=== PATIENT | female | born 1975 | race Two or more races ===

== ENCOUNTER 2019-07-10 16:27 | Emergency (ER) | payer SELFPAY ==
[~2019-07-10] VITALS: Ht 162.6 cm; Wt 89.8 kg
[2019-07-10] MEDS ORDERED: HYDROcodone/APAP 5/325MG 1 TAB TABLET PO ONE (16:45)
--- NOTE | 2019-07-10 16:49 | PHYS DOC ---
Adult General Chief Complaint Chief Complaint: ABSCESS HPI HPI Patient is a 43 year old female who presents with an abscess on the right buttock that began 2 days ago. Review of Systems Review of Systems Constitutional: Denies fever or chills [] Eyes: Denies change in visual acuity, redness, or eye pain [] HENT: Denies nasal congestion or sore throat [] Respiratory: Denies cough or shortness of breath [] Cardiovascular: No additional information not addressed in HPI [] GI: Denies abdominal pain, nausea, vomiting, bloody stools or diarrhea [] : Denies dysuria or hematuria [] Musculoskeletal: Denies back pain or joint pain [] Integument: Reports abscess to the right back to Neurologic: Denies headache, focal weakness or sensory changes [] All other systems were reviewed and found to be within normal limits, except as documented in this note. Current Medications Current Medications Current Medications Medications (Trade) Dose Ordered Sig/May Start Time Stop Time Status Last Admin Dose Admin Acetaminophen/ Hydrocodone Bitart (Lortab 5/325) 2 tab 1X ONCE 07/10/19 16:45 07/10/19 16:54 DC 07/10/19 17:00 2 TAB Lidocaine/Sodium Bicarbonate (Buffered Lidocaine 1%) 3 ml STK-MED ONCE 07/10/19 16:55 07/10/19 16:56 DC Allergies Allergies Allergies Coded Allergies Type Severity Reaction Last Updated Verified ampicillin Allergy Intermediate hives 07/10/19 Yes Physical Exam Physical Exam Constitutional: Well developed, well nourished, no acute distress, non-toxic appearance. [] HENT: Normocephalic, atraumatic, bilateral external ears normal, oropharynx moist, no oral exudates, nose normal. [] Eyes: PERRLA, EOMI, conjunctiva normal, no discharge. [] Neck: Normal range of motion, no tenderness, supple, no stridor. [] Cardiovascular:Heart rate regular rhythm, no murmur [] Lungs & Thorax: Bilateral breath sounds clear to auscultation [] Abdomen: Bowel sounds normal, soft, no tenderness, no masses, no pulsatile masses. [] Skin: Warm, dry, right inner buttock with an indurated area approximately 3 x 1 cm, the area is firm tender to touch warm small amount of fluctuance noted as well as erythema Back: No tenderness, no CVA tenderness. [] Extremities: No tenderness, no cyanosis, no clubbing, ROM intact, no edema. [] Neurologic: Alert and oriented X 3, normal motor function, normal sensory function, no focal deficits noted. [] Psychologic: Affect normal, judgement normal, mood normal. [] Current Patient Data Vital Signs Vital Signs Date Time Temp Pulse Resp B/P (MAP) Pulse Ox O2 Delivery O2 Flow Rate FiO2 07/10/19 17:13 98.9 85 18 134/76 (95) 97 Room Air 98.9 EKG EKG [] Radiology/Procedures Radiology/Procedures Indication: abscess of the right buttock Procedure: The patient was positioned appropriately. Local anesthesia was 1% buffered lidocaine. An incision was then made over the apex of the lesion with an 11 and moderate amount of yellow bloody purulent covered material was expressed. The drainage cavity was irrigated and packed with sterile gauze. The patient�s tetanus status updated as needed. The patient tolerated the procedure well. Complications: none.[] Course & Med Decision Making Course & Med Decision Making Pertinent Labs and Imaging studies reviewed. (See chart for details) This is a 43-year-old female patient presented to the ED today with an abscess on the right buttock. The abscess was drained by me as noted in procedures. Tetanus updated discharged on Bactrim. Wound care instructions and return precautions provided. Dragon Disclaimer Dragon Disclaimer This electronic medical record was generated, in whole or in part, using a voice recognition dictation system. Departure Departure Impression: Primary Impression: Cellulitis and abscess of buttock Disposition: 01 HOME, SELF-CARE Condition: STABLE Referrals: UNKNOWN PCP NAME (PCP) Follow-up with your doctor as needed Patient Instructions: Abscess, Care After Additional Instructions: You have an abscess on the right buttock that was drained in the emergency keep the area clean and dry. Please apply warm compresses to the area twice a day. Monitor the area for any worsening condition and return to the complete your prescribed antibiotics. Scripts Hydrocodone/Apap 5-325 (NORCO 5-325 TABLET) 1 Each Tablet 1 TAB PO Q6HRS PRN for PAIN, #10 TAB Prov: MUTUNGA,MILAGROS DEVELOPMENT TRAINER 07/10/19 Sulfamethoxazole/Trimethoprim (BACTRIM DS TABLET) 1 Each Tablet 1 TAB PO BID, #20 TAB Prov: MUTUNGA,MILAGROS DEVELOPMENT TRAINER 07/10/19 MILAGROS HARMAN APRN Jul 10, 2019 16:49
[2019-07-10] MEDS ORDERED: LIDOCAINE WITH 8.4% SOD BICARB 3 ML DISP.SYRIN. ONE (16:55)
[2019-07-10] MEDS ORDERED: LIDOCAINE WITH 8.4% SOD BICARB 3 ML DISP.SYRIN. INJ ONE (17:00)
[2019-07-10 17:13] VITALS: BP 134/76
[2019-07-10] MEDS ORDERED: HYDR-3164 PO (17:28)
[2019-07-10] MEDS ORDERED: SULF1TAB24 PO (17:28)
== END 2019-07-10 17:42 | disposition home or self-care (01) ==
LOC: ER 16:27
DX: L02.31 Cutaneous abscess of buttock (principal); Z88.1 Allergy status to other antibiotic agents
CPT/HCPCS: 10060; 99283